=== PATIENT | male | born 1940 | race Hispanic/Latino ===

== ENCOUNTER 2019-05-16 13:51 | Emergency (ER) | payer OTHER ==
[2019-05-16] MEDS ORDERED: FUROSEMIDE 40 MG/4 ML VIAL ONE (15:35)
[2019-05-16 15:36] LABS: Basophils % 0.4 % (0-1.3); Hematocrit 45.5 % (39.6-49.0); Lymphocytes % 26.7 % (15.3-44.8); MPV 8.2 fL (7.6-11.3); RBC Red Blood Cell Count 4.64 M/uL (4.33-5.43)
--- NOTE | 2019-05-16 15:46 | EKG ---
Test Date: 2019-05-16 Test Time: 15:23:42 Solid Waste Facility Operator: RUPALI MEASUREMENT RESULTS: Intervals: Rate: 53 IA: QRSD: 88 QT: 516 QTc: 484 [place]: P: IA: QRS: -5 T: -11 INTERPRETIVE STATEMENTS: Atrial fibrillation with slow ventricular response Prolonged QT Abnormal ECG Compared to ECG 12/17/2017 14:09:13 Prolonged QT interval now present Sinus bradycardia no longer present Atrial premature complex(es) no longer present First degree AV block no longer present ST (T wave) deviation no longer present Electronically Signed On 05-16-19 15:45:58 CDT by Arthur Shepherd
[2019-05-16 15:50] LABS: Protime INR 2.47
--- NOTE | 2019-05-16 15:50 | RAD REPORT ---
EXAM DESCRIPTION: RAD - Chest Single View - 05/16/2019 3:42 pm CLINICAL HISTORY: SWELLING Chest pain. COMPARISON: Chest Pa And Lat (2 Views) dated 03/07/2019; Chest Single View dated 12/17/2017 FINDINGS: Portable technique limits examination quality. The lungs are grossly clear. The heart is moderately enlarged in size. Old left posterior rib fractur es.
[2019-05-16 15:55] LABS: ALT/SGPT 41 U/L (12-78); AST/SGOT 100 U/L (15-37); Albumin 3.1 g/dL (3.4-5.0); Alkaline Phosphatase 105 U/L (45-117); BUN Blood Urea Nitrogen 11 mg/dL (7-18); Bicarbonate 31 mmol/L (21-32); Bilirubin Total 2.5 mg/dL (0.2-1.0); Glucose Level 83 mg/dL (74-106); Magnesium 1.9 mg/dL (1.8-2.4); NT PRO-BNP 1296 pg/mL (<450); Potassium 3.8 mmol/L (3.5-5.1); Protein, Total 6.6 g/dL (6.4-8.2); Sodium Level 140 mmol/L (136-145); Troponin (Emerg Dept Use Only) < 0.02 ng/mL (0.0-0.045)
[2019-05-16 16:05] LABS: Urine Blood NEGATIVE (NEG); Urine Glucose NEGATIVE (NEG); Urine Protein NEGATIVE (NEG); Urine Specific Gravity 1.015 (1.005-1.030)
--- NOTE | 2019-05-16 17:27 | RAD REPORT ---
EXAM DESCRIPTION: US - Scrotum Testicles - 05/16/2019 5:17 pm CLINICAL HISTORY: SWELLING Pain and swelling. COMPARISON: <Comparisons> FINDINGS: The right testicle 4.6 x 3.1 x 2.1 cm. No intratesticular masses or evidence of testicular torsion. The left testicle 4.5 x 3.4 x 2.1 cm. No intratesticular masses or evidence of testicular torsion. Both epididymides are normal in size and appearance. A mild left hydrocele is present. Small left varicocele is also noted. IMPRESSION: No evidence of testicular mass or testicular torsion seen. Small left hydrocele with small left varicocele also present.
--- NOTE | 2019-05-16 17:30 | RAD REPORT ---
EXAM DESCRIPTION: US - Extrem Venous W Compress Rolando - 05/16/2019 5:17 pm CLINICAL HISTORY: SWELLING Bilateral leg edema and swelling. COMPARISON: No comparisons TECHNIQUE: Real-time sonographic interrogation of the left and right lower extremity deep venous sys tems was performed. FINDINGS: Normal compressibility, flow augmentation, phasic flow and spontaneous flow is identified in both the left and right lower extremity deep venous systems. 4 x 4 cm left Gillis's cyst. IMPRESSION: No sonographic evidence of left or right lower extremity deep venous thrombosis.
--- NOTE | 2019-05-16 17:47 | RAD REPORT ---
EXAM DESCRIPTION: CTAbdomen Pelvis W Contrast - 05/16/2019 5:31 pm CLINICAL HISTORY: Abdominal pain. SWELLING COMPARISON: No comparisons TECHNIQUE: Biphasic CT imaging of the abdomen and pelvis was performed with 100 ml non-ionic IV cont rast. All CT scans are performed using dose optimization technique as appropriate and may include automated exposure control or mA/KV adjustment according to patient size. FINDINGS: Small right pleural effusion is evident. Nodular heterogenous appearance to the liver parenchyma is seen suggesting underlying cirrhosis. Ther e is a vague area of enhancement seen in the anterior right lobe measuring 3.0 x 3.0 cm. Prominent sp lenomegaly. Numerous varicosities are present in the central abdomen compatible with portal hypertens ion. Right adrenal gland is normal. Left adrenal gland is normal. Kidneys show no hydronephrosis. No solid renal mass. No bowel obstruction, free air, free fluid or abscess. Mild anasarca is present. The appendix is norm al. Sigmoid diverticulosis is present without diverticulitis. No evidence of significant lymphadenopa thy. Moderate lumbar degenerative changes. IMPRESSION: Cirrhotic liver pattern is present with vague 3 cm area of enhancement seen in the anter ior right lobe. Followup nonemergent MR imaging of the liver would be suggested for better assessment . Portal hypertension is seen with splenomegaly. Mild anasarca with small right pleural effusion. No measurable ascites.
--- NOTE | 2019-05-16 17:57 | ER ---
Nurse's Notes [facility] Name: Sudarshan Swift Age: 78 yrs Sex: Male : 1940 Arrival Date: 05/16/2019 Time: 13:55 Bed 13 Private MD: Diagnosis: Generalized edema-anasarca Presentation: 05/16 14:07 Presenting complaint: Patient states: Leg and testicular swelling. Being evaluated for aj CHF by PCP. Transition of care: patient was not received from another setting of care. Onset of symptoms was May 16, 2019. Risk Assessment: Do you want to hurt yourself or someone else? Patient reports no desire to harm self or others. Initial Sepsis Screen: Does the patient meet any 2 criteria? No. Patient's initial sepsis screen is negative. Does the patient have a suspected source of infection? No. Patient's initial sepsis screen is negative. Care prior to arrival: None. 14:07 Method Of Arrival: Wheelchair aj 14:07 Acuity: GREER 3 aj Triage Assessment: 14:08 General: Appears in no apparent distress. comfortable, Behavior is calm, cooperative, aj appropriate for age. Pain: Denies pain. Neuro: Level of Consciousness is awake, alert, obeys commands, Oriented to person, place, time, situation, Appropriate for age. Cardiovascular: Edema is 4+ to waist, pubic area, left upper thigh, left lower thigh, left knee, left midcalf, left ankle, left foot, right upper thigh, right lower thigh, right knee, right midcalf, right ankle and right foot. Respiratory: Airway is patent Respiratory effort is even, unlabored, Respiratory pattern is regular, symmetrical. Derm: Skin is intact, is healthy with good turgor, Skin is pink, warm \T\ dry. normal. Historical: - Allergies: 14:08 No Known Allergies; aj - Immunization history:: Adult Immunizations up to date. - Social history:: Smoking status: Patient/guardian denies using tobacco. - Ebola Screening: : Patient negative for fever greater than or equal to 101.5 degrees Fahrenheit, and additional compatible Ebola Virus Disease symptoms Patient denies exposure to infectious person Patient denies travel to an Ebola-affected area in the 21 days before illness onset No symptoms or risks identified at this time. Screenin:40 Abuse screen: Denies threats or abuse. Denies injuries from another. Nutritional sg screening: No deficits noted. Tuberculosis screening: No symptoms or risk factors identified. Never had TB. Fall Risk None identified. Assessment: 14:30 General: Appears in no apparent distress. well groomed, well developed, well nourished, sg Behavior is calm, cooperative, appropriate for age. Pain: Complains of pain in right testicle Quality of pain is described as aching, throbbing. Neuro: Level of Consciousness is awake, alert, obeys commands, Oriented to person, place, time, situation, Sock Lining Stitcher are equal bilaterally Moves all extremities. Full function Speech is normal, Facial symmetry appears normal. Cardiovascular: Capillary refill is brisk in bilateral fingers Chest pain is denied. Cardiovascular: Edema is 2+ to left midcalf, left ankle, left foot, left toes, right midcalf, right ankle, right foot and right toes pitting to left midcalf, left ankle, left foot, left toes, right midcalf, right ankle, right foot and right toes. Respiratory: Airway is patent Respiratory effort is even, unlabored, Respiratory pattern is regular, symmetrical. GI: Abdomen is round obese. : Swelling noted on penis on scrotum. EENT: No signs and/or symptoms were reported regarding the EENT system. Derm: Skin is pink, warm \T\ dry. Musculoskeletal: Circulation, motion, and sensation intact. 16:20 Reassessment: ultrasound at bedside at this time. sg Vital Signs: 14:08 BP 168 / 82; Pulse 55; Resp 20; Temp 97.7; Pulse Ox 98% on R/A; Weight 127.01 kg; aj Height 5 ft. 8 in. (172.72 cm); 16:00 BP 144 / 77; Pulse 65; Resp 17; Pulse Ox 100% on R/A; sg 18:00 BP 142 / 76; Pulse 60; Resp 17; Pulse Ox 99% on R/A; sg 14:08 Body Mass Index 42.57 (127.01 kg, 172.72 cm) ED Course: 13:55 Patient arrived in ED. mr 14:08 Triage completed. aj 14:08 Arm band placed on right wrist. Patient placed in waiting room, Patient notified of wait time. 14:13 Gary Barajas, KIM is Primary Nurse. sg 14:19 [facility]anda [facility]-C [facility]. kb 14:20 Josh Ojeda MD is Attending Physician. kb 14:30 Patient has correct armband on for positive identification. Bed in low position. Call sg light in reach. Side rails up X2. pole sander operator on. Pulse ox on. NIBP on. Warm blanket given. Head of bed elevated. 14:30 No provider procedures requiring assistance completed. sg 15:12 Inserted saline lock: 20 gauge in right antecubital area, using aseptic technique. sg Blood collected. IV inserted by Andria HERNANDES tech. 15:26 EKG done, by metallurgical engineering technician. reviewed by Vanda JUAREZ. at1 15:43 XRAY Chest (1 view) In Process Unspecified. EDMS 16:30 Radiology exam delayed due to patient is getting U.S. done at this time. nj 17:19 US Extremity Venous W Compression Rolando In Process Unspecified. EDMS 17:19 US Scrotum Testicles In Process Unspecified. EDMS 17:32 CT completed. Patient tolerated procedure well. Patient moved to CT. Patient moved back [facility] from CT. 17:34 CT Abd/Pelvis - IV Contrast Only In Process Unspecified. EDMS 18:20 IV discontinued, intact, bleeding controlled, No redness/swelling at site. Pressure sg dressing applied. Administered Medications: 16:20 Drug: Lasix 40 mg Route: IVP; Site: left antecubital; sg 18:00 Follow up: Response: No adverse reaction sg Output: 18:00 Urine: 1000ml (Voided); Total: 1000ml. sg Outcome: 17:56 Discharge ordered by . kb 18:10 Discharged to home via wheelchair, with family. sg 18:10 Condition: good 18:10 Discharge instructions given to patient, family, Instructed on discharge instructions, follow up and referral plans. safety practices, Demonstrated understanding of instructions, follow-up care. 18:14 Patient left the ED. tw2 Signatures: Dispatcher [employer] EDMS Vanda Martinez FNP-C FNP-Gary Jean RN RN sg Myers, Amanda, RN RN aj Rivera, Mary mr Gonzales, Amanda, general labor forklift operator EKG Tat1 Diana Patricia RN RN tw2 Evaristo Cruz [facility]
--- NOTE | 2019-05-16 17:57 | EDPHYS ---
Physician Documentation [facility] Name: Sudarshan Swift Age: 78 yrs Sex: Male : 1940 Arrival Date: 05/16/2019 Time: 13:55 Bed 13 Private MD: ED Physician Josh Ojeda HPI: 05/16 16:22 This 78 yrs old Male presents to ER via Wheelchair with complaints of kb Testicular Pain. 16:23 Pt reports he has had swelling from waist down since middle of February. States he has been kb to Dr Sofia, then Dr Shepherd. Stopped seeing Bismark and started seeing Dr Oquendo. Bismark put pt on Lasix and Elpidio wrote for Spirinolactone (not started yet). Pt has had 2 echos done, one here (reviewed) and one in Joao' office. States Joao now wants pt to have a MRI at [facility]. Awaiting call from chief crew scheduler for that. Today, pt told daughter that his scrotum has been swollen for 2 weeks so that is why they are here today. Pt denies any pain, shortness of breath or palpitations. . Onset: The symptoms/episode began/occurred 3 month(s) ago. Severity of symptoms: At their worst the symptoms were severe in the emergency department the symptoms are unchanged. The patient has not experienced similar symptoms in the past. The patient has been recently seen by a physician:. Historical: - Allergies: 14:08 No Known Allergies; aj - Immunization history:: Adult Immunizations up to date. - Social history:: Smoking status: Patient/guardian denies using tobacco. - Ebola Screening: : Patient negative for fever greater than or equal to 101.5 degrees Fahrenheit, and additional compatible Ebola Virus Disease symptoms Patient denies exposure to infectious person Patient denies travel to an Ebola-affected area in the 21 days before illness onset No symptoms or risks identified at this time. ROS: 16:20 Constitutional: Negative for fever, chills, and weight loss, Cardiovascular: Negative kb for chest pain, palpitations. +edema to lower half of body Respiratory: Negative for shortness of breath, cough, wheezing, and pleuritic chest pain, Abdomen/GI: Negative for abdominal pain, nausea, vomiting, diarrhea, and constipation, MS/Extremity: Negative for injury and deformity, Neuro: Negative for headache, weakness, numbness, tingling, and seizure. Exam: 16:20 Constitutional: This is a well developed, well nourished patient who is awake, alert, kb and in no acute distress. Head/Face: Normocephalic, atraumatic. Chest/axilla: Normal chest wall appearance and motion. Nontender with no deformity. No lesions are appreciated. Respiratory: Lungs have equal breath sounds bilaterally, clear to auscultation and percussion. No rales, rhonchi or wheezes noted. No increased work of breathing, no retractions or nasal flaring. Abdomen/GI: Soft, non-tender, with normal bowel sounds. No distension or tympany. No guarding or rebound. No evidence of tenderness throughout. Skin: Warm, dry with normal turgor. Normal color with no rashes, no lesions, and no evidence of cellulitis. MS/ Extremity: Pulses equal, no cyanosis. Neurovascular intact. Full, normal range of motion. Neuro: Awake and alert, GCS 15, oriented to person, place, time, and situation. Cranial nerves II-XII grossly intact. Motor strength 5/5 in all extremities. Sensory grossly intact. Cerebellar exam normal. Normal gait. 16:20 Cardiovascular: Edema: 3+ edema to level of waist, pubic area, left upper thigh, left lower thigh, left knee, left midcalf, left ankle, left foot, right upper thigh, right lower thigh, right knee, right midcalf, right ankle and right foot. Vital Signs: 14:08 BP 168 / 82; Pulse 55; Resp 20; Temp 97.7; Pulse Ox 98% on R/A; Weight 127.01 kg; aj Height 5 ft. 8 in. (172.72 cm); 16:00 BP 144 / 77; Pulse 65; Resp 17; Pulse Ox 100% on R/A; sg 18:00 BP 142 / 76; Pulse 60; Resp 17; Pulse Ox 99% on R/A; sg 14:08 Body Mass Index 42.57 (127.01 kg, 172.72 cm) aj MDM: 14:20 Patient medically screened. kb 16:21 Data reviewed: vital signs, nurses notes. Data interpreted: Pulse oximetry: on room air kb is 98 %. Interpretation: normal. 17:56 Counseling: I had a detailed discussion with the patient and/or guardian regarding: the kb historical points, exam findings, and any diagnostic results supporting the discharge/admit diagnosis, lab results, radiology results, the need for outpatient follow up, a rack room worker, a skein drier, to return to the emergency department if symptoms worsen or persist or if there are any questions or concerns that arise at home. 05/16 15:02 Order name: Urine Dipstick--Ancillary (enter results); Complete Time: 16:06 bd 05/16 15:10 Order name: Basic Metabolic Panel; Complete Time: 16:03 kb 05/16 15:10 Order name: CBC with Diff; Complete Time: 15:49 kb 05/16 15:10 Order name: LFT's; Complete Time: 16:03 kb 05/16 15:10 Order name: Magnesium; Complete Time: 16:03 kb 05/16 15:10 Order name: NT PRO-BNP; Complete Time: 16:03 kb 05/16 15:10 Order name: PT-INR; Complete Time: 15:53 kb 05/16 15:10 Order name: Troponin (emerg Dept Use Only); Complete Time: 16:03 kb 05/16 15:10 Order name: XRAY Chest (1 view); Complete Time: 15:55 kb 05/16 15:10 Order name: EKG; Complete Time: 15:13 kb 05/16 15:10 Order name: US Extremity Venous W Compression Rolando; Complete Time: 17:31 kb 05/16 15:22 Order name: US Scrotum Testicles; Complete Time: 17:30 kb 05/16 16:09 Order name: CT Abd/Pelvis - IV Contrast Only; Complete Time: 17:51 hb 05/16 15:10 Order name: Cardiac monitoring; Complete Time: 16:22 kb 05/16 15:10 Order name: EKG - Nurse/Tech; Complete Time: 16:23 kb 05/16 15:10 Order name: IV Saline Lock; Complete Time: 16:23 kb 05/16 15:10 Order name: Labs collected and sent; Complete Time: 16:23 kb 05/16 15:10 Order name: O2 Per Protocol; Complete Time: 16:23 kb 05/16 15:10 Order name: O2 Sat Monitoring; Complete Time: 16:23 kb Administered Medications: 16:20 Drug: Lasix 40 mg Route: IVP; Site: left antecubital; sg 18:00 Follow up: Response: No adverse reaction sg Disposition: 18:21 Co-signature as Attending Physician, Josh Ojeda MD. rn Disposition: 05/16/19 17:56 Discharged to Home. Impression: Generalized edema - anasarca. - Condition is Stable. - Discharge Instructions: Edema, [id number], Primary Biliary Cirrhosis. - Medication Reconciliation Form, Thank You Letter, Antibiotic Education, Prescription Opioid Use form. - Follow up: Emergency Department; When: As needed; Reason: Worsening of condition. Follow up: Private Physician; When: 2 - 3 days; Reason: Recheck today's complaints, Continuance of care, Re-evaluation by your physician. Signatures: Dispatcher [employer] EDMS Vanda Martinez, JOSEFA-Luisito ORACLE MANUFACTURING CONSULTANT-CkGary Osorio, RN Nelida Roe RN Josh Saenz MD MD rn Wise, Tara, RN RN tw2 Corrections: (The following items were deleted from the chart) 18:14 17:56 05/16/2019 17:56 Discharged to Home. Impression: Generalized edema - anasarca. tw2 Condition is Stable. Discharge Instructions: Edema, [id number]. Forms are Medication Reconciliation Form, Thank You Letter, Antibiotic Education, Prescription Opioid Use. Follow up: Emergency Department; When: As needed; Reason: Worsening of condition. Follow up: Private Physician; When: 2 - 3 days; Reason: Recheck today's complaints, Continuance of care, Re-evaluation by your physician. kb
== END 2019-05-16 18:14 | disposition home or self-care (01) ==
LOC: ER 13:51
DX: R60.1 Generalized edema (principal)
CPT/HCPCS: 93005; 85025; 80048; 36415; 83735; 85610; 80076; 81003; 84484; 83880; 74177; 71045; 93970; 76870; J1940